=== PATIENT | female | born 1965 | race Caucasian/White ===

== ENCOUNTER 2018-10-03 01:16 | Emergency (ER) | payer OTHER ==
[~2018-10-03] VITALS: Ht 172.7 cm; Wt 90.7 kg
[~2018-10-03 01:16] MED LIST: AMPHETAMINE SAL20 M1; AUGMENTIN 500-1 EACH PO; BENZTROPINE MESY2 MG; CARISOPRODOL 3350 MG; CARISOPRODOL 3350 MG PO; CIPROFLOXACIN500 M1 PO; CIPROFLOXACIN500 M3 PO; COUMADIN 2 MG TA2 M1; COUMADIN 5 MG TA5 M1 PO; DESYREL; DESYREL150 MG PO; DESYREL300 MG PO; DEXILANT60 MG; DEXILANT60 MG PO; DIAZEPAM 5 MG5 MG PO; DIPHENHIST50 MG PO; FENTANYL PATCH75 MCG TRANSDERM; FLEXERIL PO; FLONASE 0.05%50 MCG; HALCION0.25 MG PO; HYDROCODONE-AP1 EAC6 PO; IBUPROFEN 800800 M1 PO; JANTOVEN5 MG PO; LATUDA60 MG PO; LEXAPRO20 MG PO; LOXAPINE10 MG; LOXAPINE10 MG PO; MACROBID 100 M100 M1 PO; NORCO 5-325 TA1 EACH PO; NYQUIL D COLD295 ML; OXYCODONE HCL15 MG PO; OXYCODONE HCL30 MG PO; OXYCONTIN20 M1 PO; PERCOCET 5-3251 EACH PO; PHENERGAN 25 MG25 MG PO; PREDNISONE50 MG PO; SIMVASTATIN20 MG PO; TIZANIDINE HCL4 M1 PO; TRILEPTAL600 MG PO; ULTRAM 50MG TAB50 MG PO; VIIBRYD20 MG PO; XANAX 0.5 MG0.5 M1 PO; XANAX XR2 MG; [UNRECOGNIZED DRUG - OTHER]
[2018-10-03] MEDS ORDERED: HYDROCODON-ACE1 EAC7 PO (01:33)
[2018-10-03] MEDS ORDERED: ADDERALL 30 MG30 MG PO (01:33)
[2018-10-03] MEDS ORDERED: AMBIEN5 MG PO (01:34)
[2018-10-03] MEDS ORDERED: NEURONTIN 400M400 M2 PO (01:35)
[2018-10-03 01:43] LABS: ABSOLUTE BASOPHILS 0.1 thou/uL (0.0-0.2); ABSOLUTE EOSINOPHILS 0.2 thou/uL (0.0-0.7); ABSOLUTE LYMPHOCYTES 3.6 thou/uL (0.8-5.3); ABSOLUTE MONOCYTES 0.8 thou/uL (0.0-1.2); ABSOLUTE NEUTROPHILS 4.3 thou/uL (1.6-8.1); BASOPHILS 1.1 %; EOSINOPHILS 2.7 %; HEMATOCRIT 37.9 % (37.0-47.0); HEMOGLOBIN 12.9 gm/dL (12.0-15.0); MCH 33.7 pg (26.0-34.0); MCV 99.2 fL (80.0-100.0); MPV 8.1 fl. (7.2-11.1); NUCLEATED RBCS 0 /100WBC; PLATELET COUNT* 313 thou/uL (150-400); POLYS 47.2 %; RBC 3.82 mil/uL (4.20-5.00); RDW-CV 15.1 % (10.5-14.5); WBC 9.1 thou/uL (4.0-11.0)
[2018-10-03 01:52] LABS: ANION GAP 9 mmol/L (7-16); BUN 16 mg/dL (7-18); CALCIUM 8.7 mg/dL (8.5-10.1); CHLORIDE 102 mmol/L (98-107); CO2 26 mmol/L (21-32); CREATININE 1.1 mg/dL (0.6-1.3); GLUCOSE 138 mg/dL (70-99); POTASSIUM 3.3 mmol/L (3.5-5.1); SODIUM 137 mmol/L (136-145)
[2018-10-03 02:03] LABS: ALBUMIN 3.1 g/dL (3.4-5.0); ALKALINE PHOSPHATASE 94 U/L (46-116); LIPASE 141 U/L (73-393); SGOT 16 U/L (15-37); SGPT 22 U/L (30-65); TOTAL BILIRUBIN 0.1 mg/dL (<0.1-1.0); TOTAL PROTEIN 6.8 g/dL (6.4-8.2)
[2018-10-03 02:30] LABS: NT-PRO BRAIN NAT PEPTIDE 28 pg/mL (<300); TROPONIN-I LEVEL <0.06 ng/mL (<0.06)
[2018-10-03 02:41] VITALS: BP 141/88
--- NOTE | 2018-10-03 12:18 | EKG ---
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: SID : 1965 Requested By: Martha Andino Order Number: [id number] MD: Pierce Voss Measurements Intervals [place] Rate: 108 P: [place]: QRS: -67 QRSD: 101 T: 16 QT: 379 QTc: 508 Interpretive Statements uninterpretable Artifact in lead(s) II,III,aVL,aVF,V1,V2,V3,V4,V5,V6 Compared to ECG 10/10/2015 14:23:32 Myocardial infarct finding now present Sinus rhythm no longer present T-wave abnormality no longer present Electronically Signed On 10-03-2018 12:18:12 PARI MUTUEL CLERK by Pierce Voss [email or web address] <ELECTRONICALLY SIGNED> By: Pierce Voss MD, FACC 10/03/18 1218 0125 0125 Pierce Voss MD, FACC /EPI
== END 2018-10-03 02:42 | disposition home or self-care (01) ==
LOC: M.ERS 01:16
PROVIDERS: Emergency Medicine
DX: F41.9 Anxiety disorder, unspecified (principal); F31.9 Bipolar disorder, unspecified; F90.9 Attention-deficit hyperactivity disorder, unspecified type; G89.29 Other chronic pain; M54.9 Dorsalgia, unspecified; G43.909 Migraine, unspecified, not intractable, without status migrainosus; I10 Essential (primary) hypertension; F17.210 Nicotine dependence, cigarettes, uncomplicated; Z88.2 Allergy status to sulfonamides; Z88.8 Allergy status to other drugs, medicaments and biological substances; Z88.5 Allergy status to narcotic agent; Z98.890 Other specified postprocedural states

== ENCOUNTER 2021-09-01 18:31 | Emergency (ER) | payer OTHER ==
[~2021-09-01] VITALS: Ht 172.7 cm; Wt 106.1 kg
[~2021-09-01 18:31] MED LIST changes: +ADDERALL 30 MG30 MG PO; +AMBIEN5 MG PO; +HYDROCODON-ACE1 EAC7 PO; +NEURONTIN 400M400 M2 PO
[2021-09-01 19:46] LABS: HEMATOCRIT 36.4 % (37.0-47.0); HEMOGLOBIN 12.2 gm/dL (12.0-15.0); MCH 31.8 pg (26.0-34.0); MCHC 33.6 g/dL (28.0-37.0); MCV 94.6 fL (80.0-100.0); MPV 7.7 fl. (7.2-11.1); RBC 3.85 mil/uL (4.20-5.00); RDW-CV 16.2 % (10.5-14.5); WBC 6.2 thou/uL (4.0-11.0)
[2021-09-01 19:50] LABS: CREATININE 0.8 mg/dL (0.6-1.3); POTASSIUM 3.8 mmol/L (3.5-5.1)
[2021-09-01 19:55] LABS: ALBUMIN 3.3 g/dL (3.4-5.0); TOTAL BILIRUBIN 0.4 mg/dL (<0.1-1.0); TOTAL PROTEIN 7.1 g/dL (6.4-8.2)
[2021-09-01 20:06] LABS: ALCOHOL < 10 mg/dL (<10); SALICYLATE 3.6 mg/dL (2.8-20.0)
[2021-09-01 20:07] LABS: ACETAMINOPHEN < 2 ug/mL (10-30)
[2021-09-01 21:26] VITALS: BP 145/67
--- NOTE | 2021-09-02 08:39 | EKG ---
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
== END 2021-09-01 21:27 | disposition home or self-care (01) ==
LOC: M.ERS 18:31
PROVIDERS: Personal Emergency Response Attendant
DX: F23 Brief psychotic disorder (principal); F31.9 Bipolar disorder, unspecified; F41.9 Anxiety disorder, unspecified; F90.9 Attention-deficit hyperactivity disorder, unspecified type; G43.909 Migraine, unspecified, not intractable, without status migrainosus; I10 Essential (primary) hypertension; F17.210 Nicotine dependence, cigarettes, uncomplicated; Z90.89 Acquired absence of other organs; Z79.899 Other long term (current) drug therapy; Z88.8 Allergy status to other drugs, medicaments and biological substances; Z88.2 Allergy status to sulfonamides

== ENCOUNTER 2022-01-06 10:38 | Emergency (ER) | payer OTHER ==
[~2022-01-06] VITALS: Ht 172.7 cm; Wt 95.3 kg
[2022-01-06 11:25] LABS: ABSOLUTE EOSINOPHILS 0.3 thou/uL (0.0-0.7); ABSOLUTE LYMPHOCYTES 1.8 thou/uL (0.8-5.3); ABSOLUTE MONOCYTES 0.6 thou/uL (0.0-1.2); ABSOLUTE NEUTROPHILS 2.1 thou/uL (1.6-8.1); BASOPHILS 0.3 %; HEMOGLOBIN 10.6 gm/dL (12.0-15.0); LYMPHOCYTES 38.3 %; MCH 32.8 pg (26.0-34.0); MCHC 33.2 g/dL (28.0-37.0); MCV 98.7 fL (80.0-100.0); MONOCYTES 12.4 %; MPV 7.3 fl. (7.2-11.1); NUCLEATED RBCS 0 /100WBC; PLATELET COUNT* 276 thou/uL (150-400); RBC 3.25 mil/uL (4.20-5.00); WBC 4.8 thou/uL (4.0-11.0)
[2022-01-06 11:33] LABS: CALCIUM 8.2 mg/dL (8.5-10.1); CREATININE 0.8 mg/dL (0.6-1.3); POTASSIUM 3.4 mmol/L (3.5-5.1)
[2022-01-06 11:38] LABS: ALBUMIN 2.9 g/dL (3.4-5.0); TOTAL BILIRUBIN 0.3 mg/dL (<0.1-1.0); TOTAL PROTEIN 6.3 g/dL (6.4-8.2)
[2022-01-06 11:41] LABS: URINE BILIRUBIN NEGATIVE (Negative); URINE BLOOD NEGATIVE (Negative); URINE CLARITY CLEAR; URINE COLOR YELLOW; URINE GLUCOSE-RANDOM NEGATIVE (Negative); URINE KETONES NEGATIVE (Negative); URINE LEUKOCYTES-REFLEX NEGATIVE (Negative); URINE NITRITE-REFLEX NEGATIVE (Negative); URINE PROTEIN NEGATIVE (Negative); URINE SPECIFIC GRAVITY <= 1.005 (1.005-1.030); URINE UROBILINOGEN 0.2 E.U./dl (0.2-1.0)
[2022-01-06 11:46] LABS: AMP/METHAMP POSITIVE (Negative); BARBITURATES Negative (Negative); BENZODIAZEPINES POSITIVE (Negative); COCAINE Negative (Negative); METHADONE Negative (Negative); OPIATES Negative (Negative); PCP Negative (Negative); THC POSITIVE (Negative)
[2022-01-06 12:11] LABS: ALCOHOL < 10 mg/dL (<10); SALICYLATE < 2.8 mg/dL (2.8-20.0)
[2022-01-06 12:12] LABS: ACETAMINOPHEN 2 ug/mL (10-30)
[2022-01-06 12:48] VITALS: BP 136/68
== END 2022-01-06 12:59 | disposition home or self-care (01) ==
LOC: M.ERS 10:38
PROVIDERS: Family Medicine
DX: F31.9 Bipolar disorder, unspecified (principal); F41.9 Anxiety disorder, unspecified; G43.909 Migraine, unspecified, not intractable, without status migrainosus; I10 Essential (primary) hypertension; F17.210 Nicotine dependence, cigarettes, uncomplicated; Z90.89 Acquired absence of other organs; Z79.899 Other long term (current) drug therapy; Z88.2 Allergy status to sulfonamides; Z88.8 Allergy status to other drugs, medicaments and biological substances